=== PATIENT | female | born 1960 | race Caucasian/White ===

== ENCOUNTER 2017-04-26 20:07 | Observation (INO) ==
[2017-04-26 20:56] LABS: Basophils % 0.7 % (0.0-0.8); Eosinophils # 0.1 10*3/uL (0.0-0.87); Eosinophils % 1.7 % (0.00-10.9); Hematocrit 43.7 VOL% (35.7-47.0); Hemoglobin 15.2 GM/DL (12.0-16.0); Immature Granulocytes % 0.3 %; Immature Granulocytes Absolute 0.02 #; Lymphocytes # 2.1 10*3/uL (1.4-4.0); Lymphocytes % 34.9 % (21.3-54.2); Mean Corpuscular HGB Conc 34.8 GM/DL (32-36); Mean Corpuscular Hemoglobin 32 PG (27-34); Mean Corpuscular Volume 91.2 FL (87-102); Mean Platelet Volume 9.5 FL (9.6-12.0); Monocytes # 0.5 10*3/uL (0.11-0.8); Monocytes % 8.4 % (1.7-12.7); Neutrophils # 3.3 10*3/uL (1.4-7.4); Platelet Count 186 T/CUMM (130-400); Red Blood Count 4.79 MC/CUMM (3.8-5.5); Red Cell Distribution Width 12.8 % (9.3-17.3)
[2017-04-26] MEDS ORDERED: ASPIRIN 325 MG TABLET PO STA (20:59)
[2017-04-26 21:13] LABS: Alanine Aminotransferase 77 U/L (13-56); Albumin 4.3 G/DL (3.4-5.0); Alkaline Phosphatase 108 U/L (45-117); Amylase 44 U/L (25-115); Aspartate Amino Transferase 50 U/L (0-37); Blood Urea Nitrogen 11 MG/DL (7-18); Calcium 9.1 MG/DL (8.5-10.1); Glucose 90 MG/DL (74-106); Osmolality,Calculated 271.8 MOS/KG (273-304); Potassium 3.4 MMOL/L (3.5-5.1); Sodium 137 MMOL/L (136-145); Troponin I Only < 0.015 NG/ML (0.00-0.045)
[2017-04-26] MEDS ORDERED: ASPIRIN 325 MG TABLET ONE (21:32)
[2017-04-26 22:38] LABS: Apearance,Urine CLEAR (Clear); Bilirubin,Urine Negative (Negative); Blood, Urine Small mg/dL (Negative); Glucose,Urine (UA) Negative (Negative); Ketones,Urine Negative (Negative); Nitrite,Urine Negative (Negative); Protein,Urine Negative; RBC,Urine <1 /HPF (0-4); Squamous Epithelial Cell,Urine Occasional /HPF (0-10); Urine Color Straw (Yellow); Urine Specific Gravity 1.004 (1.001-1.035); Urine Urobilinogen < 2.0 EU/DL (0.2-1.0); WBC,Urine <1 /HPF (0-6)
[2017-04-26] MEDS ORDERED: ONDANSETRON 4 MG/2 ML VIAL IV PRN (22:50)
[2017-04-26] MEDS ORDERED: ZALEPLON 5 MG CAPSULE PO PRN (22:50)
[2017-04-26] MEDS ORDERED: ACETAMINOPHEN 325 MG TABLET PO PRN (22:50)
[2017-04-26] MEDS ORDERED: hydrALAZINE 20 MG/1 ML VIAL IV PRN (22:53)
[2017-04-26] MEDS ORDERED: NITROGLYCERIN SL 0.4 MG TABLET SL PRN (22:54)
[2017-04-26] MEDS ORDERED: MORPHINE 2 MG/1 ML SYRINGE IV PRN (22:54)
[2017-04-26] MEDS ORDERED: POTASSIUM CHLORIDE 20 MEQ TABLET PO ONE (23:30)
[2017-04-26] MEDS: DILTIAZEM CD 180 MG CAPSULE PO SCH (23:50)
[2017-04-26] MEDS: LEVOTHYROXINE 137 MCG TABLET PO SCH (23:50)
[2017-04-26] MEDS: SERTRALINE 100 MG TABLET PO SCH (23:50)
[2017-04-26] MEDS: ENOXAPARIN 40 MG/0.4 ML SYRINGE SUBCUT SCH (23:50)
[2017-04-26] MEDS: IBUPROFEN 600 MG TABLET PO PRN (23:51)
[2017-04-26] MEDS: busPIRone 10 MG TABLET PO SCH (23:53)
[2017-04-27] MEDS ORDERED: LORazepam 2 MG/1 ML VIAL IV PRN (00:42)
[2017-04-27 05:45] LABS: Basophils % 0.7 % (0.0-0.8); Eosinophils # 0.1 10*3/uL (0.0-0.87); Eosinophils % 2.4 % (0.00-10.9); Immature Granulocytes % 0.3 %; Immature Granulocytes Absolute 0.02 #; Lymphocytes # 2.3 10*3/uL (1.4-4.0); Lymphocytes % 38.7 % (21.3-54.2); Mean Corpuscular HGB Conc 34.9 GM/DL (32-36); Mean Corpuscular Hemoglobin 32 PG (27-34); Mean Corpuscular Volume 90.7 FL (87-102); Mean Platelet Volume 9.7 FL (9.6-12.0); Monocytes # 0.5 10*3/uL (0.11-0.8); Monocytes % 9.2 % (1.7-12.7); Neutrophils # 2.8 10*3/uL (1.4-7.4); Neutrophils % 48.7 % (38.7-73.9); Platelet Count 176 T/CUMM (130-400); Red Blood Count 4.74 MC/CUMM (3.8-5.5); White Blood Count 5.8 T/CUMM (4-12)
[2017-04-27 06:26] LABS: Bilirubin,Total 0.8 MG/DL (0.2-1.0); Osmolality,Calculated 275.5 MOS/KG (273-304); Potassium 3.8 MMOL/L (3.5-5.1); Risk Ratio 9.59; Thyroid Stimulating Hormone 2.29 uIU/ml (0.358-3.74)
[2017-04-27] MEDS: busPIRone 10 MG TABLET PO SCH ×2 (08:54→21:51)
[2017-04-27] MEDS: PANTOPRAZOLE 40 MG TABLET PO SCH (08:54)
[2017-04-27] MEDS ORDERED: KETOROLAC 30 MG/1 ML VIAL IV ONE (13:28)
[2017-04-27] MEDS ORDERED: ASPIRIN EC 81 MG TABLET PO SCH (19:00)
[2017-04-27] MEDS: LEVOTHYROXINE 137 MCG TABLET PO SCH (20:23)
[2017-04-27] MEDS: DILTIAZEM CD 180 MG CAPSULE PO SCH (21:50)
[2017-04-27] MEDS: SERTRALINE 100 MG TABLET PO SCH (21:50)
[2017-04-27] MEDS: ENOXAPARIN 40 MG/0.4 ML SYRINGE SUBCUT SCH (22:35)
[2017-04-28 08:14] VITALS: BP 143/82
[2017-04-28] MEDS: IBUPROFEN 600 MG TABLET PO PRN (08:47)
[2017-04-28] MEDS: PANTOPRAZOLE 40 MG TABLET PO SCH (08:48)
[2017-04-28] MEDS: busPIRone 10 MG TABLET PO SCH (08:48)
[2017-04-29] MEDS ORDERED: hydroCHLOROthiazide 25 MG TABLET PO SCH (09:00)
== END 2017-04-28 11:47 | disposition home or self-care (01) ==
LOC: N.EDINP 20:07 → N.ED 20:07 → N.TELEN 21:55
PROVIDERS: ADMIT Internal Medicine; ATTEND Internal Medicine

== ENCOUNTER 2017-11-04 00:37 | Inpatient (IN) ==
[2017-11-04 02:09] LABS: Basophils % 0.4 % (0.0-0.8); Eosinophils # 0.1 10*3/uL (0.0-0.87); Eosinophils % 1.1 % (0.00-10.9); Hematocrit 40.2 VOL% (35.7-47.0); Hemoglobin 13.9 GM/DL (12.0-16.0); Immature Granulocytes % 0.6 %; Immature Granulocytes Absolute 0.04 #; Lymphocytes # 1.7 10*3/uL (1.4-4.0); Lymphocytes % 23.8 % (21.3-54.2); Mean Corpuscular HGB Conc 34.6 GM/DL (32-36); Mean Corpuscular Hemoglobin 32 PG (27-34); Mean Corpuscular Volume 91.4 FL (87-102); Mean Platelet Volume 9.7 FL (9.6-12.0); Monocytes # 0.5 10*3/uL (0.11-0.8); Monocytes % 7.3 % (1.7-12.7); Neutrophils # 4.7 10*3/uL (1.4-7.4); Neutrophils % 66.8 % (38.7-73.9); Platelet Count 143 T/CUMM (130-400)
[2017-11-04 02:17] LABS: INR 0.9
[2017-11-04 02:28] LABS: Albumin 3.8 G/DL (3.4-5.0); Bilirubin,Total 0.4 MG/DL (0.2-1.0); Calcium 9.1 MG/DL (8.5-10.1); Osmolality,Calculated 279.4 MOS/KG (273-304); Potassium 3.6 MMOL/L (3.5-5.1); Total Protein 7.2 G/DL (6.4-8.3)
[2017-11-04 17:54] LABS: Risk Ratio 4.98; VLDL CHOLESTEROL 107.2 MG/DL
[2017-11-05 04:43] LABS: Basophils % 0.3 % (0.0-0.8); Eosinophils # 0.1 10*3/uL (0.0-0.87); Eosinophils % 1.1 % (0.00-10.9); Hematocrit 36.7 VOL% (35.7-47.0); Hemoglobin 12.1 GM/DL (12.0-16.0); Immature Granulocytes % 0.4 %; Immature Granulocytes Absolute 0.03 #; Lymphocytes # 0.9 10*3/uL (1.4-4.0); Lymphocytes % 12.4 % (21.3-54.2); Mean Corpuscular Hemoglobin 31 PG (27-34); Mean Corpuscular Volume 94.1 FL (87-102); Mean Platelet Volume 10.1 FL (9.6-12.0); Monocytes # 0.8 10*3/uL (0.11-0.8); Monocytes % 10.3 % (1.7-12.7); Neutrophils # 5.6 10*3/uL (1.4-7.4); Neutrophils % 75.5 % (38.7-73.9); Platelet Count 119 T/CUMM (130-400); Red Cell Distribution Width 15.4 % (9.3-17.3); White Blood Count 7.4 T/CUMM (4-12)
[2017-11-05 06:03] LABS: Albumin 3.2 G/DL (3.4-5.0); Bilirubin,Total 0.7 MG/DL (0.2-1.0); Calcium 8.1 MG/DL (8.5-10.1); Osmolality,Calculated 267.2 MOS/KG (273-304); Potassium 3.5 MMOL/L (3.5-5.1); Total Protein 6.3 G/DL (6.4-8.3)
[2017-11-06 08:11] VITALS: BP 145/76
== END 2017-11-06 10:10 | disposition home or self-care (01) | DRG 502 ==
LOC: N.ED 00:37 → N.EDINP 01:58 → N.3E 02:20
PROVIDERS: ADMIT Orthopaedic Surgery; ATTEND Orthopaedic Surgery